=== PATIENT | female | born 1975 | race Caucasian/White ===

== ENCOUNTER 2016-07-27 18:35 | Emergency (ER) | payer OTHER | END 2016-07-27 20:05 | disposition home or self-care (01) | LOC: ER1 18:35 | DX: S80.02XA Contusion of left knee, initial encounter (principal); G43.909 Migraine, unspecified, not intractable, without status migrainosus; Z79.899 Other long term (current) drug therapy; V43.52XA Car driver injured in collision with other type car in traffic accident, initial encounter; Y93.89 Activity, other specified; Y92.410 Unspecified street and highway as the place of occurrence of the external cause | CPT/HCPCS: 73564; 99284 ==